=== PATIENT | female | born 1970 | race Caucasian/White ===

== ENCOUNTER 2019-08-12 17:59 | Emergency (ER) | payer MEDICAID ==
[~2019-08-12] VITALS: Ht 157.5 cm; Wt 86.2 kg
--- NOTE | 2019-08-12 18:02 | NUR ---
Patient to ER bed H1 to gown for evaluation. Side rails up.
[2019-08-12 18:03] VITALS: BP_SYST 142
--- NOTE | 2019-08-12 18:05 | NUR ---
PT C/O L FOOT PAIN S/P STEPPING ON NAIL.
--- NOTE | 2019-08-12 18:15 | NUR ---
ER at bedside examining patient.
[2019-08-12] MEDS ORDERED: DIPH-TET-PERTUS Vaccine 0.5 ML VIAL (ADACEL) I.M. ONE (18:30)
--- NOTE | 2019-08-12 19:25 | NUR ---
Patient given written and verbal discharge instructions and verbalizes understanding. ER MD Dr. Olivares discussed with patient the results and treatment provided. Patient in stable condition. ID arm band removed. Patient educated on pain management and to follow up with PMD. Pain Scale 0/10. Opportunity for questions provided and answered. Medication side effect fact sheet provided.
== END 2019-08-12 19:25 | disposition home or self-care (01) ==
LOC: SED 17:59
DX: S91.332A Puncture wound without foreign body, left foot, initial encounter (principal); Z88.0 Allergy status to penicillin; Z88.2 Allergy status to sulfonamides; W45.0XXA Nail entering through skin, initial encounter; Y93.89 Activity, other specified; Y92.89 Other specified places as the place of occurrence of the external cause; Y99.8 Other external cause status
CPT/HCPCS: 90715; 99283